=== PATIENT | female | born 2005 | race Caucasian/White ===

== ENCOUNTER 2024-05-13 13:30 | Emergency (ER) | payer OTHER, SELFPAY ==
[2024-05-13 13:46] VITALS: BP 126/68
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
[2024-05-13] MEDS: TYLENOL 650 MG PO (14:51)
[2024-05-13 16:37] VITALS: BP 128/70
== END 2024-05-13 16:41 | disposition home or self-care (01) ==
LOC: EMR 13:30
PROVIDERS: EMERGENCY PHYSICIAN Emergency Medicine; FAMILY PHYSICIAN Nurse Practitioner Adult Health
DX: S30.811A Abrasion of abdominal wall, initial encounter (principal); S20.312A Abrasion of left front wall of thorax, initial encounter; R51.9 Headache, unspecified; V47.5XXA Car driver injured in collision with fixed or stationary object in traffic accident, initial encounter; V49.40XA Driver injured in collision with unspecified motor vehicles in traffic accident, initial encounter; W22.11XA Striking against or struck by driver side automobile airbag, initial encounter; Y92.410 Unspecified street and highway as the place of occurrence of the external cause; Z88.0 Allergy status to penicillin
CPT/HCPCS: 99283; 71046